=== PATIENT | male | born 1965 | race Caucasian/White ===

== ENCOUNTER 2022-09-13 18:00 | Outpatient (REF) | payer BC, SELFPAY ==
[2022-09-13 18:26] LABS: HCT 47.3 % (40.0-50.0); HGB 15.5 g/dL (13.5-17.5); MCH 28.4 pg (27.0-33.0); MCHC 32.8 % (32.0-36.0); MCV 87 fL (80-95); MPV 9.8 fL (8.0-11.0); Platelet Count 247 10^3/uL (130-400); RBC 5.45 10^6/uL (4.36-5.78); RDW 13.2 % (11.8-14.1); RDW-SD 41.7 fL; WBC 6.27 10^3/uL (4.4-10.8)
[2022-09-13 18:48] LABS: Anion Gap 13.2 mmol/L (3-11); BUN 27 mg/dL (7-18); CO2 22.8 mmol/L (21.0-32.0); CREATININE 1.1 mg/dL (0.70-1.30); Calcium 8.8 mg/dL (8.5-10.1); Calculated LDL 131 mg/dL (<100); Chloride 106 mmol/L (98-107); Cholesterol 200 mg/dL (<200); Glucose 84 mg/dL (74-106); HDL Cholesterol 52 mg/dL (40-60); Potassium 4.1 mmol/L (3.5-5.1); Sodium 142 mmol/L (136-145); Triglyceride 89 mg/dL (<150)
[2022-09-14 19:31] LABS: PSA, Screening 1.4 ng/mL (<=3.5)
== END 2022-09-13 18:01 | disposition home or self-care (01) ==
LOC: NCHCN 18:00
PROVIDERS: Visit Provider Physician Assistant
DX: Z00.00 Encounter for general adult medical examination without abnormal findings (principal); Z12.5 Encounter for screening for malignant neoplasm of prostate; Z13.220 Encounter for screening for lipoid disorders
CPT/HCPCS: 80048; 80061; 84153; 85027

== ENCOUNTER 2023-08-21 07:38 | Day surgery (SDC) | payer BC, SELFPAY ==
[2023-08-21 07:47] VITALS: BP 123/79; PULSE 64; RESP 16; TEMP 36; O2SAT 90
[2023-08-21] MEDS: Lactated Ringers 1,000 ML 80 ML IV (08:27)
--- NOTE | 2023-08-21 08:39 | W.COLOREPORT ---
Date of service: 08/21/23 Time of Service: 08:44 Colonoscopy Report Procedure Description: PROCEDURES PERFORMED: 1. Colonoscopy hot snare polypectomy x1 2. Cold forceps polypectomy x 2 3. Endoscopic clip placement PREOPERATIVE DIAGNOSIS: Screening colonoscopy POSTOPERATIVE DIAGNOSIS: Colorectal polyps, minimal diverticular disease, grade 1 internal hemorrhoids SURGEON: Wayne Narayan MD INDICATION FOR PROCEDURE: the patient is a 57-year-old man who has never had a screening colonoscopy before. He denies any symptoms. He does not have a family history of colon cancer. FINDINGS: In the ascending colon a sessile 7-10 mm polyp was seen and removed with hot snare technique. The mucosal defect seemed deep enough that I decided to approximate the mucosal edges of the resection with an endoscopic clip. There are minimal/early diverticular changes in the sigmoid colon. In the rectum two separate 2-3 mm flat polyps were removed with cold forceps technique. Minimal grade 1 internal hemorrhoids noted. SURVEILLANCE interval/FOLLOW-UP: Pending path results of the polyps. If the ascending colon polyp is an advanced adenoma, then 3 years. If they are all tubular adenomas or benign polyps then 7 to 10 years. SPECIMENS: 3 EBL: Minimal COMPLICATIONS: None QUALITY of prep: Excellent Procedure in detail: The patient gave written consent and was in agreement with the indications, the potential risks as well as the benefits of the procedure. They were taken to the endoscopy suite and laid in the left lateral decubitus position. A timeout was performed and anesthesia was administered which was tolerated well. I started the procedure. Digital rectal and visual examination was performed and grossly within normal limits. A well-lubricated flexible colonoscope was then introduced and passed without any notable difficulty all the way to the cecum identified by the ileocecal valve and the appendiceal orifice. The scope was then slowly withdrawn with the above-noted findings. The patient tolerated the procedure well and was taken to the PACU in hemodynamically stable condition.
--- NOTE | 2023-08-21 08:44 | W.ANESPRE ---
General Info Date of Service Date Performed: 08/21/23 Height: 5 ft 11 in Weight: 94.6 kg Body Mass Index (BMI): 29.0 Surgical Procedure: Operation Date: 08/21/23 09:05 Proposed Procedure Side Surgeon p Aquilino Narayan MD Meds Allergies and Home Medications Allergies Allergy/AdvReac Type Severity Reaction Status Date / Time Penicllin Allergy Severe Hives Uncoded 08/21/23 08:10 Home Medication Medication Instructions Recorded budesonide-formoterol HFA 160 2 puff inhalation BID 05/22/23 mcg-4.5 mcg/actuation aerosol inhaler (Symbicort) bisacodyl 5 mg tablet,delayed 5 mg PO ONCE #4 tabs 08/02/23 release (Dulcolax (bisacodyl)) polyethylene glycol 3350 17 17 g PO ONCE #238 grams 08/02/23 gram/dose oral powder cetirizine 10 mg capsule (All Day 10 mg PO DAILY PRN 08/20/23 Allergy (cetirizine)) Current Visit Medications: Current Medications Generic Name Dose Route Start Last Admin Trade Name Freq PRN Reason Stop Dose Admin Ringer's Solution 1,000 mls @ 80 mls/hr 08/21/23 06:00 08/21/23 08:27 IV 08/21/23 23:59 80 mls/hr INFUSION JHONY Administration IV Miscellaneous Supplies 1 each 08/21/23 06:00 Iv Access IV 08/21/23 23:59 DIRECTED JHONY Sodium Chloride 0 ml 08/21/23 06:00 Normal Saline Flush 10 Ml Syr IV 08/21/23 23:59 PRN PRN Sodium Chloride 0 ml 08/21/23 06:00 Normal Saline 10 Ml Vial IJ 08/21/23 23:59 DIRECTED PRN Sterile Water 0 ml 08/21/23 06:00 Water,Injection,Sterile 10 Ml Vial IJ 08/21/23 23:59 DIRECTED PRN PFSH Medical History Medical History Asthma, chronic Pain in joint Rash Surgical History Surgical History Hx of LASIK History of tonsillectomy S/P ACL repair left x2 Tobacco Smoking/Tobacco Use Status: Never Alcohol Alcohol Intake: current Alcohol intake frequency: 3 or more drinks per day Substance Use Substance use: Never Substance use type: does not use Vital Signs and Lab Results Vital Signs Most Recent Vital Signs in EMR: Most Recent Vital Signs Temp Pulse Resp BP Pulse Ox 36 C L 64 16 123/79 90 L 08/21/23 07:47 08/21/23 07:47 08/21/23 07:47 08/21/23 07:47 08/21/23 07:47 Lab Results Blood Type / Crossmatch: No Data to Display Complete Blood Count: No Data to Display Complete Metabolic Panel: No Data to Display Liver Function Panel: No Data to Display Coagulation Panel: No Data to Display Cardiac Panel: No Data to Display Arterial Blood Gas: No Data to Display Venous Blood Gas: No Data to Display Pancreas Panel: No Data to Display Thyroid Panel: No Data to Display Infectious Disease: No Data to Display Blood Cultures: No Data to Display Toxicology Panel: No Data to Display Anesthesia Assessment and Plan Anesthesia History Personal History: No History of Anesthesia Complications Family History: No Family History of Anesthesia Complications Exercise Tolerance Exercise Tolerance: Metabolic Equivalents>4 Pertinent Negatives Pertinent Negatives: No Symptoms of GERD, No Major Cardiovascular Symptoms or Complaints and No History of CVA/TIA Cardiac & Pulmonary Exam Cardiac Exam: Normal S1/S2 Heart Sounds Pulmonary Exam: Clear Bilateral Breath Sounds Implantable Cardiac Device Does patient have a Pacemaker or an ICD?: No Airway Exam Known Difficult Airway: No Mallampati Class: 3 Mouth Opening: Normal (> 3cm) Thyromental Distance: Greater than 3 cm Neck Range of Motion: Full ROM Neck Circumference: Normal Teeth Condition: Normal Dentition ASA Classification ASA Score: ASA 2 Emergency Case?: No NPO Status NPO Status: NPO Clears >2 hours, Solids >8 hours Anesthesia Plan Resuscitation Status: Full Code Anesthesia Technique: General Anesthesia Airway Planned: Natural Airway Monitors Used: Standard Monitors
[2023-08-21 08:45] VITALS: BMI 29.0
--- NOTE | 2023-08-21 08:45 | W.PM.DSUDISC ---
Date of service: 08/21/23 Time of Service: 08:45 Discharge Plan Disposition Patient Disposition: Home Condition: Good Discharge Details Attending Provider: Abdirizak Narayan Primary Care Provider: Norman Solis Home Meds and New Rx's Prescriptions: No Action bisacodyl [Dulcolax (bisacodyl)] 5 mg tablet,delayed release (DR/EC) 5 mg PO ONCE Qty: 4 0RF Rx Instructions: Take per colonoscopy instructions provided by ordering providers office polyethylene glycol 3350 17 gram/dose powder 17 g PO ONCE Qty: 238 0RF Rx Instructions: Take per colonoscopy instructions provided by ordering providers office budesonide-formoterol [Symbicort] 160-4.5 mcg/actuation HFA aerosol inhaler 2 puff inhalation BID All Day Allergy (cetirizine) 10 mg capsule 10 mg PO DAILY PRN Discharge Instructions Additional Instructions: FINDINGS: Some polyps were found and removed today. They are nothing to worry about. This is why we do the colonoscopies. They will get reviewed at a pathologist lab. Depending on the kind of polyps they are will dictate when your next colonoscopy should be done. You will get called with those results. Stand Alone Forms: Anesthesia Discharge InstFaby Carlos (BG) Activity:: Activity as Tolerated Diet:: As Tolerated
--- NOTE | 2023-08-21 09:05 | BOWEL_PTH ---
PATIENT: Julius Paz LOC: [facility] U#:[id number] AGE/SX: 57/M ROOM: RE08/21/[address]: Abdirizak Narayan : 1965 BED: DIS: 08/21/2023 SPEC #: [id number] RECD: 08/21/23 12:09 STATUS: LEANDRA RECeline #: [id number] MONO: 08/21/23 09:[address]: Abdirizak Narayan DEPT: Surgical Specimen RECD BY: Ligia Garcia ENTERED: 08/21/23 12:10 SP TYPE: Bowel OTHR DR: Norman Solis Tissues: 1 - BIOPSY BOWEL 2 - BIOPSY BOWEL Procedures: GROSS AND MICRO LEVEL 4 Comments: [id number]
[2023-08-21 09:24] VITALS: BP 107/65; PULSE 57; RESP 16; TEMP 36.5; O2SAT 96
[2023-08-21 09:39] VITALS: BP 112/74; PULSE 51; RESP 16; TEMP 36.6; O2SAT 96
--- NOTE | 2023-08-21 12:37 | W.ANESPOSTOP ---
Postoperative Evaluation Date, Time and Location Date Performed: 08/21/23 Time Performed: :25 Patient Location: Day Surgery Unit Vital Signs Most Recent Imported Vital Signs: Most Recent Vital Signs Temp Pulse Resp BP Pulse Ox 36.6 C 51 L 16 112/74 96 08/21/23 09:39 08/21/23 09:39 08/21/23 09:39 08/21/23 09:39 08/21/23 09:39 Pain Score Most Recent Pain Score: Most Recent Pain Score Pain Level 0 08/21/23 09:39 Assessment Mental Status: Arousable with meaningful communication Airway and Respiratory Function: Patent airway with normal (patient baseline) respiratory exam Cardiovascular Function: Hemodynamically Stable Hydration Status: Adequately Hydrated Nausea & Vomiting: No Nausea or Vomiting Pain: Pt. Denies Any Pain Peripheral Nerve Block: Patient did not receive a nerve block
== END 2023-08-21 09:57 | disposition home or self-care (01) ==
PROVIDERS: PCP Physician Assistant; Visit Provider Student in an Organized Health Care Education/Training Program
PROC: 0DJD8ZZ Inspection of Lower Intestinal Tract, Via Natural or Artificial Opening Endoscopic (ICD-10-PCS; CPT 45378; principal; 2023-08-21 09:00)
DX: Z12.11 Encounter for screening for malignant neoplasm of colon (principal); K57.30 Diverticulosis of large intestine without perforation or abscess without bleeding; K64.0 First degree hemorrhoids
CPT/HCPCS: 45385; 45380; 00123; 88305; J2704

== ENCOUNTER 2023-10-08 08:49 | Outpatient (REF) | payer BC, SELFPAY ==
[2023-10-08 18:35] LABS: ALT 42 U/L (16-63); AST 19 U/L (15-37); Albumin 3.5 g/dL (3.4-5.0); Alkaline Phosphatase 57 U/L (46-116); Anion Gap 9.5 mmol/L (3-11); BUN 23 mg/dL (7-18); Bilirubin, Total 0.31 mg/dL (0.2-1.0); CO2 26.5 mmol/L (21.0-32.0); CREATININE 0.9 mg/dL (0.70-1.30); Calculated LDL 111 mg/dL (<100); Chloride 107 mmol/L (98-107); Cholesterol 188 mg/dL (<200); Glucose 88 mg/dL (74-106); HDL Cholesterol 61 mg/dL (40-60); Potassium 4.5 mmol/L (3.5-5.1); Sodium 143 mmol/L (136-145); Total Protein 6.7 g/dL (6.4-8.2); Triglyceride 84 mg/dL (<150)
[2023-10-09 18:57] LABS: PSA, Screening 1.2 ng/mL (<=3.5)
== END 2023-10-08 08:50 | disposition home or self-care (01) ==
LOC: NCHCN 08:49
PROVIDERS: PCP Physician Assistant; Visit Provider Physician Assistant
DX: Z13.220 Encounter for screening for lipoid disorders (principal); Z12.5 Encounter for screening for malignant neoplasm of prostate; Z13.228 Encounter for screening for other metabolic disorders
CPT/HCPCS: 80053; 80061; 84153